=== PATIENT | male | born 1945 | race American Indian/Alaskan Native ===

== ENCOUNTER 2018-09-14 17:02 | Emergency (ER) | payer BC, MEDICARE, OTHER ==
[2018-09-14] MEDS ORDERED: Sodium Chloride 0.9% 10 ML Syringe FLUSH PRN (17:19)
--- NOTE | 2018-09-14 17:26 | EDM.PDOC ---
ED HPI GENERAL MEDICAL PROBLEM - General Stated Complaint: L SIDE NUMBNESS STUMBLING Time Seen by Provider: 09/14/18 17:05 Source of Information: Reports: Patient History Limitations: Reports: No Limitations - History of Present Illness INITIAL COMMENTS - FREE TEXT/NARRATIVE: 73-year-old male with previous history of strokes 2 reports he was sitting at the computer at approximately 4 PM this afternoon and he began to notice numbness in both of his legs and he noticed that his left leg felt unusual and then he tried to get up and he noticed that his left leg was weak and he was stumbling and falling to the left. He also noticed some left arm numbness and feelings of weakness in his left arm as well. The symptoms have been constant and may be even worsening a bit since that time. He does have a mild frontal headache. He rates that pain as a 2/10. No nausea or vomiting. No trouble swallowing. No trouble speaking. No feelings of confusion. His vision appears normal to exam. He reports that his previous strokes have given him right-sided symptoms. He reports recently he has been on a health care kick and has been doing more exercising and running and he actually has stopped all of his medications (including his diabetes medications) approximately 2 years ago. Apparently he was not doing this in conjunction with his doctor (he just did it on his own) and he reports that his recent blood pressures have been very good. He does not regularly check his blood sugars. There are no other associated signs or symptoms. There are no other modifying factors. Onset: Today, Sudden (4 PM) Duration: Constant, Getting Worse (May be getting worse) Location: Reports: Head (Mild frontal headache) Quality: Reports: Dull (And aching) Severity: Mild Improves with: Reports: None Worsens with: Reports: None Context: Reports: Other (While sitting at the computer) Associated Symptoms: Reports: No Other Symptoms Treatments TUBERCULOSIS SPECIALIST: Reports: Other (see below) (Nothing) - Related Data Allergies Allergy/AdvReac Type Severity Reaction Status Date / Time No Known Allergies Allergy Verified 09/14/18 17:58 Home Meds: Home Meds NK [No Known Home Meds] 09/14/18 [History] Past Medical History Cardiovascular History: Reports: CAD, Hypertension Neurological History: Reports: CVA Endocrine/Metabolic History: Reports: Diabetes, Type II - Past Surgical History Cardiovascular Surgical History: Reports: Coronary Artery Stent GI Surgical History: Reports: Cholecystectomy Social & Family History - Tobacco Use Smoking Status *Q: Former Smoker (Nonsmoker since 1985) - Alcohol Use Alcohol Use History: Yes Alcohol Use Comment: No alcohol use since 1985 - Living Situation & Occupation Occupation: Retired (States he just retired last year.) ED ROS GENERAL - Review of Systems Review Of Systems: See Below Constitutional: Reports: No Symptoms HEENT: Reports: No Symptoms Respiratory: Reports: No Symptoms Cardiovascular: Reports: No Symptoms GI/Abdominal: Reports: No Symptoms : Reports: No Symptoms Musculoskeletal: Reports: No Symptoms Skin: Reports: No Symptoms Neurological: Reports: Headache, Numbness (Left-sided), Difficulty Walking ( Falling to left), Weakness (Left-sided) Immunologic: Reports: No Symptoms ED EXAM, NEURO - Physical Exam Exam: See Below Exam Limited By: No Limitations General Appearance: Alert, WD/WN, Mild Distress Eye Exam: Bilateral Eye: EOMI, Normal Inspection, PERRL Ears: Normal External Exam, Hearing Grossly Normal Nose: Normal Inspection, Normal Mucosa, No Blood Throat/Mouth: Normal Inspection, Normal Oropharynx, Normal Voice, No Airway Compromise Head Exam: Atraumatic, Normocephalic Neck: Normal Inspection, Supple, Non-Tender, Full Range of Motion Respiratory/Chest: No Respiratory Distress, Lungs Clear, Normal Breath Sounds, No Accessory Muscle Use, Chest Non-Tender Cardiovascular: Normal Peripheral Pulses, Regular Rate, Rhythm, No JVD, No Murmur GI/Abdominal: Normal Bowel Sounds, Soft, Non-Tender, No Organomegaly, No Mass Neurological: Alert, Normal Mood/Affect, CN II-XII Intact, Oriented x 3, Other ( 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 Strength appears slightly less in the left leg versus the right leg. NIH stroke scale score was 5.) Back Exam: Normal Inspection Extremities: Normal Inspection, Normal Range of Motion, Non-Tender, No Pedal Edema, Normal Capillary Refill Psychiatric: Normal Affect Skin Exam: Warm, Dry, Intact, Normal Color, No Rash EKG INTERPRETATION EKG Date: 09/14/18 Time: 17:45 Rhythm: NSR [place]: LAD-Left [place] Deviation (Slight left axis) P-Wave: Present QRS: Normal ST-T: Other (Nonspecific ST-T changes) QT: Normal Comparison: NA - No Prior EKG EKG Interpretation Comments: Normal sinus rhythm with a rate of 85. There are nonspecific ST-T changes. There is no current of injury present. There is a slight left axis. There is a normal QTC. There is no old EKG for comparison. Course - Orders/Labs/Meds Orders: Active Orders 24 hr Category Date Time Status EKG Documentation Completion [RC] ASDIRECTED Care 09/14/18 17:20 Active Head wo Cont [CT] Stat Exams 09/14/18 17:19 Taken INR,PT,PROTHROMBIN TIME [COAG] Stat Lab 09/14/18 17:55 Received PTT,PARTIAL THROMBOPLSTIN TIME [COAG] Stat Lab 09/14/18 17:55 Received Labetalol [Normodyne] 100 mg Med 09/14/18 18:15 Active Sodium Chloride 0.9% [Normal Saline] 80 ml IV TITRATE Sodium Chloride 0.9% [Saline Flush] Med 09/14/18 17:19 Active 10 ml FLUSH ASDIRECTED PRN Peripheral IV Insertion Adult [OM.PC] Routine Oth 09/14/18 17:19 Ordered EKG 12 Lead [EK] Routine Ther 09/14/18 17:19 Ordered Medication Orders Labetalol HCl 100 mg/ Sodium (Chloride) 100 mls @ 30 mls/hr IV TITRATE LAURA; Protocol Sodium Chloride (Saline Flush) 10 ml FLUSH ASDIRECTED PRN PRN Reason: Keep Vein Open Labs: Laboratory Tests 09/14/18 09/14/18 09/14/18 Range/Units 17:55 17:55 17:55 WBC 6.4 (4.5-12.0) X10-3/uL RBC 4.97 (4.30-5.75) x10(6)uL Hgb 15.6 (13.5-17.8) g/dL Hct 45.4 (30.0-51.3) % MCV 91.2 (80-96) fL MCH 31.3 (27.7-33.6) pg MCHC 34.3 (32.2-35.4) g/dL RDW 12.8 (11.5-15.5) % Plt Count 153 (125-369) X10(3)uL MPV 8.7 (7.4-10.4) fL Neut % (Auto) 72.1 (46-82) % Lymph % (Auto) 23.1 (13-37) % Steele % (Auto) 3.2 L (4-12) % Eos % (Auto) 1 (1.0-5.0) % Baso % (Auto) 1 (0-2) % Neut # (Auto) 4.5 (1.6-8.3) # Lymph # (Auto) 1.5 (0.6-5.0) # Steele # (Auto) 0.2 (0.0-1.3) # Eos # (Auto) 0.1 (0.0-0.8) # Baso # (Auto) 0.1 (0.0-0.2) # Sodium 137 (135-145) mmol/L Potassium 4.4 (3.5-5.3) mmol/L Chloride 99 L (100-110) mmol/L Carbon Dioxide 27 (21-32) mmol/L BUN 25 H (7-18) mg/dL Creatinine 1.1 (0.70-1.30) mg/dL Est Cr Clr Drug Dosing TNP Estimated GFR (MDRD) > 60 (>60) BUN/Creatinine Ratio 22.7 H (9-20) Glucose 304 H (80-116) mg/dL Calcium 9.1 (8.6-10.2) mg/dL Magnesium 1.8 (1.8-2.5) mg/dL Total Bilirubin 0.6 (0.1-1.3) mg/dL AST 15 (5-25) IU/L ALT 28 (12-36) U/L Alkaline Phosphatase 98 (56-112) IU/L Troponin I < 0.017 L (<0.017-0.056) ng/mL Total Protein 7.4 (6.0-8.0) g/dL Albumin 4.3 (3.2-4.6) g/dL Globulin 3.1 g/dL Albumin/Globulin Ratio 1.4 Meds: Medications Generic Name Dose Route Start Last Admin Trade Name Freq PRN Reason Stop Dose Admin Labetalol HCl 100 mg/ Sodium 100 mls @ 30 mls/hr 09/14/18 18:15 Chloride IV TITRATE LAURA Protocol 0.5 MG/MIN Sodium Chloride 10 ml 09/14/18 17:19 Saline Flush FLUSH ASDIRECTED PRN Keep Vein Open Discontinued Medications Generic Name Dose Route Start Last Admin Trade Name Magnolia PRN Reason Stop Dose Admin Alteplase, Recombinant 48.6 mg 09/14/18 18:28 09/14/18 18:36 Activase IV 09/14/18 18:29 48.6 mg .INFUSION ONE Administration Alteplase, Recombinant 5.4 mg 09/14/18 18:28 09/14/18 18:36 Activase IVPUSH 09/14/18 18:29 5.4 mg .BOLUS ONE Administration Labetalol HCl Confirm 09/14/18 18:13 09/14/18 18:24 Normodyne Administered 09/14/18 18:14 10 mg Dose Administration 100 mg .[facility] Radiology Interpretation Free Text/Narrative:: CT scan of head showed no bleeding but did show evidence of a right post central gyrus loss of galvez-white matter differentiation consistent with ischemia , possible subacute versus acute. There was also a new hypodense area in the right occipital lobe consistent with a cortical infarct that was new compared to CT scan on 2012. This was per the [facility] radiologist. - Re-Assessments/Exams Free Text/Narrative Re-Assessment/Exam: 09/14/18 18:00: Results of the patient's CT scan showed no evidence of bleeding but there is some evidence of a new right sided CVA/ischemia. Therefore, I called and discussed the patient's case with Dr. Salazar, stroke neurologist at [facility] in [place], and with the patient having left upper and lower extremity weakness and slight discoordination as well as decreased sensation on the left side numbness/paresthesias (NIH stroke score of 5), he would recommend thrombolytics using TPA and he would also recommend given the patient labetalol in small aliquots to decrease the patient's blood pressure below 185/110. He would then recommend rapid transport of the patient to [facility] in [place] (the fastest means possible) for admission and he would accept the patient in transfer. I discussed this with the patient and the risk and the benefits of TPA administration to the patient and he has given me informed verbal consent to proceed with TPA administration. This was witnessed by IRIS Hale. So the plan will be to reduce the patient's blood pressure below 185/110 and then give TPA via stroke protocol. 09/14/18 18:30: TPA bolus initiated after blood pressure was reduced to the 178/ 93 range using labetalol IV. Air ambulance crew is arriving shortly and the drip will be started and the patient will be transported to [facility] in [place]. The patient has thus far remained neurologically stable. He is awake and alert. He is conversant. Departure - Departure Time of Disposition: 18:45 Disposition: DC/Tfer to Acute Hospital 02 Condition: Critical Clinical Impression: Acute ischemic stroke, Hypertension, poor control - Discharge Information Referrals: PCP,None [Primary Care Provider] - Critical Care Note - Critical Care Note Total Time (mins): 65 Comments: Total critical care time spent with the patient, reviewing CT scan, discussing the patient's case with consultants and arranging transfer was 65 minutes. - My Orders Last 24 Hours: My Active Orders 09/14/18 17:19 Head wo Cont [CT] Stat Sodium Chloride 0.9% [Saline Flush] 10 ml FLUSH ASDIRECTED PRN Peripheral IV Insertion Adult [OM.PC] Routine EKG 12 Lead [EK] Routine 09/14/18 17:20 EKG Documentation Completion [RC] ASDIRECTED 09/14/18 17:55 INR,PT,PROTHROMBIN TIME [COAG] Stat PTT,PARTIAL THROMBOPLSTIN TIME [COAG] Stat 09/14/18 18:15 Labetalol [Normodyne] 100 mg Sodium Chloride 0.9% [Normal Saline] 80 ml IV TITRATE - Assessment/Plan Last 24 Hours: My Active Orders 09/14/18 17:19 Head wo Cont [CT] Stat Sodium Chloride 0.9% [Saline Flush] 10 ml FLUSH ASDIRECTED PRN Peripheral IV Insertion Adult [OM.PC] Routine EKG 12 Lead [EK] Routine 09/14/18 17:20 EKG Documentation Completion [RC] ASDIRECTED 09/14/18 17:55 INR,PT,PROTHROMBIN TIME [COAG] Stat PTT,PARTIAL THROMBOPLSTIN TIME [COAG] Stat 09/14/18 18:15 Labetalol [Normodyne] 100 mg Sodium Chloride 0.9% [Normal Saline] 80 ml IV TITRATE
[2018-09-14] MEDS ORDERED: Labetalol 100 MG/20 ML MDV IVPUSH ONE (18:00)
[2018-09-14] MEDS ORDERED: Labetalol 100 MG/20 ML MDV ONE (18:13)
[2018-09-14] MEDS ORDERED: Labetalol 100 MG in Sodium Chloride 0.9% 80 ML IV SCH (18:15)
== END 2018-09-14 18:55 ==
LOC: FB.ED 17:02
DX: I63.9 Cerebral infarction, unspecified (principal); I10 Essential (primary) hypertension; I25.10 Atherosclerotic heart disease of native coronary artery without angina pectoris; Z95.5 Presence of coronary angioplasty implant and graft; R40.2412 Glasgow coma scale score 13-15, at arrival to emergency department; R29.705 NIHSS score 5; Z87.891 Personal history of nicotine dependence
CPT/HCPCS: 36415; 70450; 80053; 82962; 83735; 84484; 85025; 85610; 85730; 93005; 96365; 96375; 99285; J2997; J3490

== ENCOUNTER 2021-05-05 14:31 | Observation (INO) | payer MEDICAID, MEDICARE ==
[2021-05-05] MEDS ORDERED: Sodium Chloride 0.9% 1,000 ML IV ONE (14:46)
--- NOTE | 2021-05-05 14:54 | EDM.PDOC ---
ED HPI GENERAL MEDICAL PROBLEM - General Chief Complaint: Syncope Stated Complaint: CHEST PAIN Time Seen by Provider: 05/05/21 14:45 Source of Information: Reports: Patient History Limitations: Reports: No Limitations - History of Present Illness INITIAL COMMENTS - FREE TEXT/NARRATIVE: c/o syncope pt with CVA 2y ago, still with left hemiparesis, went to [facility] for his usual PT, he told therapist that he felt "played out" and walked to a chair but collapsed and was "out" for one minute SBP 88 at scene, SBP 99 by EMS and then again SBP 113 by EMS, BP 118/65 with HR 58 on arrival here, PO 94% on RA no n/v, sensorium clear, no pain, no f/c/d pt reports a slip and fall on ice 1 wk ago, slight MARI then, none now, not seen then with him, she was at PT with him, pt had completed his usual 30 min, was seated in a chair, - Related Data Allergies Allergy/AdvReac Type Severity Reaction Status Date / Time No Known Allergies Allergy Verified 09/14/18 17:58 Home Meds: Home Meds Ascorbic Acid [Vitamin C] 250 mg PO DAILY 05/05/21 [History] Aspirin 325 mg PO DAILY 05/05/21 [History] Cholecalciferol (Vitamin D3) [Vitamin D3] 2,000 unit PO DAILY 05/05/21 [History] Cyanocobalamin (Vitamin B-12) [Vitamin B-12] 250 mcg PO DAILY 05/05/21 [History] Docusate Sodium [Colace] 100 mg PO BID 05/05/21 [History] Escitalopram [Lexapro] 20 mg PO DAILY 05/05/21 [History] Gabapentin [Neurontin] 300 mg PO TID 05/05/21 [History] Insulin Glarg,Human.Rec.Analog [Lantus Solostar] 8 unit SUBCUT BEDTIME 05/05/21 [History] Insulin Lispro [Humalog] 4 unit SQ TIDMEALS 05/05/21 [History] Lisinopril/Hydrochlorothiazide [Lisinopril-Hctz 20-25 mg Tab] 1 tab PO DAILY 05/05/21 [History] Melatonin 3 mg PO BEDTIME 05/05/21 [History] Metoprolol Succinate 50 mg PO DAILY 05/05/21 [History] Multivitamin 1 each PO DAILY 05/05/21 [History] Sennosides/Docusate Sodium [Senna-Docusate Sodium Tablet] 2 each PO BEDTIME [History] amLODIPine [Norvasc] 5 mg PO DAILY 05/05/21 [History] atorvaSTATin [Lipitor] 80 mg PO DAILY 05/05/21 [History] traZODone 75 mg PO BEDTIME 05/05/21 [History] Past Medical History Cardiovascular History: Reports: CAD, Hypertension Neurological History: Reports: CVA Endocrine/Metabolic History: Reports: Diabetes, Type II - Past Surgical History Cardiovascular Surgical History: Reports: Coronary Artery Stent GI Surgical History: Reports: Cholecystectomy Social & Family History - Living Situation & Occupation Occupation: Retired (States he just retired last year.) ED ROS GENERAL - Review of Systems Review Of Systems: See Below Constitutional: Reports: No Symptoms HEENT: Reports: No Symptoms Respiratory: Reports: No Symptoms. Denies: Shortness of Breath Cardiovascular: Reports: No Symptoms. Denies: Chest Pain Endocrine: Reports: No Symptoms GI/Abdominal: Reports: No Symptoms. Denies: Abdominal Pain : Reports: No Symptoms Musculoskeletal: Reports: No Symptoms Skin: Reports: No Symptoms Neurological: Reports: Other (lightheaded) Psychiatric: Reports: No Symptoms Hematologic/Lymphatic: Reports: No Symptoms Immunologic: Reports: No Symptoms ED EXAM, GENERAL - Physical Exam Exam: See Below Exam Limited By: No Limitations General Appearance: Alert, WD/WN, No Apparent Distress Ears: Hearing Grossly Normal Nose: Normal Inspection Throat/Mouth: Normal Inspection, Normal Voice, No Airway Compromise Head: Atraumatic, Normocephalic Neck: Normal Inspection, Supple, Non-Tender, Full Range of Motion. No: Lymphadenopathy (R), Lymphadenopathy (L) Respiratory/Chest: No Respiratory Distress, Lungs Clear, Normal Breath Sounds, Chest Non-Tender Cardiovascular: Regular Rate, Rhythm, No Edema, Other (2/6 SCARLETT at LSB) GI/Abdominal: Soft, Non-Tender Back Exam: Normal Inspection, Full Range of Motion. No: CVA Tenderness (R), CVA Tenderness (L) Extremities: Normal Inspection, Normal Range of Motion, Non-Tender Neurological: Alert, Oriented, CN II-XII Intact, Normal Cognition, No Motor/Sensory Deficits Psychiatric: Normal Affect, Normal Mood Skin Exam: Warm, Dry, Intact, Normal Color, No Rash Lymphatic: No Adenopathy Course - Vital Signs Last Recorded V/S: Last Vital Signs Temp 36.6 C 05/05/21 14:31 Pulse 58 L 05/05/21 14:31 Resp 15 05/05/21 14:31 BP 118/65 05/05/21 14:31 Pulse Ox 98 05/05/21 14:31 - Orders/Labs/Meds Orders: Active Orders 24 hr Category Date Time Status Head wo Cont [CT] Stat Exams 05/05/21 14:46 Taken COVID-19/FLU A+B [MOLEC] Stat Lab 05/05/21 16:35 Received UA W/MICROSCOPIC [URIN] Stat Lab 05/05/21 16:55 Received EKG 12 Lead [EK] Routine Ther 05/05/21 14:47 Ordered Labs: Laboratory Tests 05/05/21 05/05/21 05/05/21 Range/Units 15:00 15:00 15:00 WBC 5.6 (3.2-10.1) x10-3/uL RBC 4.33 (3.90-5.90) x10(6)uL Hgb 13.5 (12.9-17.7) g/dL Hct 40.0 (38.3-50.1) % MCV 92.6 (80.8-98.7) fL MCH 31.1 (27.0-33.3) pg MCHC 33.7 (28.7-35.3) g/dL RDW 13.2 (12.4-15.0) % Plt Count 148 (117-477) x10(3)uL MPV 7.8 (6.7-11.0) fL Neut % (Auto) 71.9 H (40.3-71.8) % Lymph % (Auto) 21.0 (15.8-45.3) % Gonzales % (Auto) 5.5 (5.5-15.2) % Eos % (Auto) 1.2 (0.1-6.8) % Baso % (Auto) 0.4 (0.3-3.8) % Neut # (Auto) 4.0 (1.7-6.9) x10-3/uL Lymph # (Auto) 1.2 (0.5-4.5) x10-3/uL [place] # (Auto) 0.3 (0.0-1.2) x10-3/uL Eos # (Auto) 0.1 (0.0-0.6) x10-3/uL Baso # (Auto) 0.0 (0.0-0.3) x10-3/uL PT 10.0 (9.0-11.1) sec INR 0.93 L (1.00-1.24) D-Dimer, Quantitative 0.34 (0.0-0.59) mg/LFEU Sodium 138 (135-145) mmol/L Potassium 5.0 (3.5-5.3) mmol/L Chloride 102 (100-110) mmol/L Carbon Dioxide 29 (21-32) mmol/L BUN 29 H (7-18) mg/dL Creatinine 1.2 (0.70-1.30) mg/dL Est Cr Clr Drug Dosing 46.07 mL/min Estimated GFR (MDRD) 59 L (>60) BUN/Creatinine Ratio 24.2 H (9-20) Glucose 110 D (80-116) mg/dL Calcium 9.0 (8.6-10.2) mg/dL Total Bilirubin 0.5 (0.1-1.3) mg/dL AST 16 (5-25) IU/L ALT 23 D (12-36) U/L Alkaline Phosphatase 64 (56-112) IU/L Troponin I (4.0-60.3) pg/mL C-Reactive Protein (0.5-0.9) mg/dL NT-Pro-B Natriuret Pep (<=450) pg/mL Total Protein 6.9 (6.0-8.0) g/dL Albumin 4.0 (3.2-4.6) g/dL Globulin 2.9 g/dL Albumin/Globulin Ratio 1.4 05/05/21 Range/Units 15:00 WBC (3.2-10.1) x10-3/uL RBC (3.90-5.90) x10(6)uL Hgb (12.9-17.7) g/dL Hct (38.3-50.1) % MCV (80.8-98.7) fL MCH (27.0-33.3) pg MCHC (28.7-35.3) g/dL RDW (12.4-15.0) % Plt Count (117-477) x10(3)uL MPV (6.7-11.0) fL Neut % (Auto) (40.3-71.8) % Lymph % (Auto) (15.8-45.3) % Gonzales % (Auto) (5.5-15.2) % Eos % (Auto) (0.1-6.8) % Baso % (Auto) (0.3-3.8) % Neut # (Auto) (1.7-6.9) x10-3/uL Lymph # (Auto) (0.5-4.5) x10-3/uL Gonzales # (Auto) (0.0-1.2) x10-3/uL Eos # (Auto) (0.0-0.6) x10-3/uL Baso # (Auto) (0.0-0.3) x10-3/uL PT (9.0-11.1) sec INR (1.00-1.24) D-Dimer, Quantitative (0.0-0.59) mg/LFEU Sodium (135-145) mmol/L Potassium (3.5-5.3) mmol/L Chloride (100-110) mmol/L Carbon Dioxide (21-32) mmol/L BUN (7-18) mg/dL Creatinine (0.70-1.30) mg/dL Est Cr Clr Drug Dosing mL/min Estimated GFR (MDRD) (>60) BUN/Creatinine Ratio (9-20) Glucose (80-116) mg/dL Calcium (8.6-10.2) mg/dL Total Bilirubin (0.1-1.3) mg/dL AST (5-25) IU/L ALT (12-36) U/L Alkaline Phosphatase (56-112) IU/L Troponin I 6.9 (4.0-60.3) pg/mL C-Reactive Protein < 0.2 L (0.5-0.9) mg/dL NT-Pro-B Natriuret Pep 686 H (<=450) pg/mL Total Protein (6.0-8.0) g/dL Albumin (3.2-4.6) g/dL Globulin g/dL Albumin/Globulin Ratio Meds: Medications Discontinued Medications Generic Name Dose Route Start Last Admin Trade Name Magnolia PRN Reason Stop Dose Admin Sodium Chloride 1,000 mls @ 999 mls/hr 05/05/21 14:46 05/05/21 15:25 Normal Saline IV 05/05/21 15:46 999 mls/hr .BOLUS ONE Administration - Re-Assessments/Exams Free Text/Narrative Re-Assessment/Exam: 05/05/21 18:55 d/w Dr Dominguez who accepted pt in admission to obs bed and telemetry not orthostatic here has pacemaker altho EKG [id number] at 15:01 with SR, rate 58, no ectopy, no paced beats, normal, no acute/ST/ischemic changes cannot exclude an arrhythmia although unlikely in pt who has pacemaker, not clear why there was difficulty obtaining a pulse at scene, however BP was low at scene no ectopy in ED, HR 60 pt alert and stable and without sxs labs reviewed with pt and , will admit to obs bed for telemetry and repeat labs in AM Departure - Departure Time of Disposition: 19:02 Disposition: Refer to Observation Condition: Good Clinical Impression: Syncope, Hypotension, Elevated brain natriuretic peptide (BNP) level, P acemaker, Coronary artery disease, History of heart artery stent - Discharge Information *PRESCRIPTION DRUG MONITORING PROGRAM REVIEWED*: Not Applicable *COPY OF PRESCRIPTION DRUG MONITORING REPORT IN PATIENT CONNOR: Not Applicable Forms: ED Department Discharge Sepsis Event Note (ED) - Focused Exam Vital Signs: Vital Signs Temp Pulse Resp BP Pulse Ox 05/05/21 14:31 36.6 C 58 L 15 118/65 98 - My Orders Last 24 Hours: My Active Orders 05/05/21 14:46 Head wo Cont [CT] Stat 05/05/21 14:47 EKG 12 Lead [EK] Routine 05/05/21 16:35 COVID-19/FLU A+B [MOLEC] Stat 05/05/21 16:55 UA W/MICROSCOPIC [URIN] Stat - Assessment/Plan Last 24 Hours: My Active Orders 05/05/21 14:46 Head wo Cont [CT] Stat 05/05/21 14:47 EKG 12 Lead [EK] Routine 05/05/21 16:35 COVID-19/FLU A+B [MOLEC] Stat 05/05/21 16:55 UA W/MICROSCOPIC [URIN] Stat
[2021-05-05 17:14] LABS: CORONAVIRUS COVID-19 NAA NEGATIVE (NEGATIVE)
[2021-05-05] MEDS ORDERED: Glucagon,Human Recombinant 1 MG Vial IM PRN (19:04)
[2021-05-05] MEDS ORDERED: 50% Dextrose in Water 50 ML Syringe IVPUSH PRN (19:04)
[2021-05-05] MEDS ORDERED: Acetaminophen 325 MG Tab PO PRN (19:06)
[2021-05-05] MEDS ORDERED: Gabapentin 300 MG Cap PO SCH (21:00)
[2021-05-05] MEDS ORDERED: Gabapentin 300 MG Cap PO ONE (21:00)
[2021-05-05] MEDS ORDERED: Insulin Glargine,Hum.Rec.Anlog 100 UNIT/ML 3 ML Pen SUBCUT SCH (21:00)
[2021-05-05] MEDS ORDERED: traZODone 50 MG Tab PO ONE (21:00)
[2021-05-05] MEDS ORDERED: traZODone 50 MG Tab PO SCH (21:00)
[2021-05-05] MEDS ORDERED: Melatonin 3 MG Tab PO SCH (21:00)
[2021-05-05] MEDS ORDERED: Insulin Glargine,Hum.Rec.Anlog 100 UNIT/ML 3 ML Pen SUBCUT ONE ×2 (21:00→21:16)
[2021-05-05] MEDS ORDERED: Docusate Sodium 100 MG Cap PO SCH (21:00)
--- NOTE | 2021-05-06 00:38 | PCM.SN.2 ---
- Free Text/Narrative Note: 12:33a RN from floor reports pt has had decrease HR 46 and decrease BP 90/50, no ectopy, has been in sinus rhythm pt did not receive metoprolol 50 mg with his evening meds, will hold the AM doses pacemaker does not appear to be working and will need to be interrogated by railroad car inspector in AM pt on several BP meds which may need to have doses adjusted as well pt without sxs ASSESS: 1. sinus bradycardia with apparent pacemaker dysfunction 2. hypotension due to bradycardia PLAN: hold metoprolol interrogate BP in AM adjust BP meds in AM prior to administration possible referral to EPS for new pacemaker
[2021-05-06] MEDS ORDERED: Insulin Lispro 100 Unit/ML 3 ML KwikPen SUBCUT SCH (08:00)
[2021-05-06] MEDS ORDERED: Insulin Glargine,Hum.Rec.Anlog 100 UNIT/ML 3 ML Pen SUBCUT SCH (08:05)
[2021-05-06] MEDS ORDERED: Escitalopram 20 MG Tab PO SCH (09:00)
[2021-05-06] MEDS ORDERED: amLODIPine 5 MG Tab PO SCH (09:00)
[2021-05-06] MEDS ORDERED: Non-Formulary Medication 1 Each (Atorvastatin [Lipitor] 80 MG Tablet) PO SCH (09:00)
[2021-05-06] MEDS ORDERED: Non-Formulary Medication 1 Each (Aspirin [Aspirin] 325 MG Tablet) PO SCH (09:00)
[2021-05-06] MEDS ORDERED: Metoprolol Succinate 50 MG Tab.ER PO SCH (09:00)
--- NOTE | 2021-05-06 09:24 | PCM.HP.2 ---
H&P History of Present Illness - General Date of Service: 05/06/21 Admit Problem/Dx: Admission Diagnosis/Problem Admission Diagnosis/Problem Syncope Source of Information: Patient History Limitations: Reports: No Limitations - History of Present Illness Initial Comments - Free Text/Narative: Bubba is a 76-year-old male who was brought into the ED for a syncopal event. He was undergoing physical therapy, and after 30 minutes felt tired and went to sit down. He was noted and witnessed to lose consciousness for at least a minute. Was brought to the ER, where he was found to have mild bradycardia. Does have a pacemaker in situ. He denies chest pain or shortness of breath. Is at the history of CVA 2 years ago hence the physical therapy. - Related Data Allergies/Adverse Reactions: Allergies Allergy/AdvReac Type Severity Reaction Status Date / Time No Known Allergies Allergy Verified 09/14/18 17:58 Home Medications: Home Meds Ascorbic Acid [Vitamin C] 250 mg PO DAILY 05/05/21 [History] Aspirin 325 mg PO DAILY 05/05/21 [History] Cholecalciferol (Vitamin D3) [Vitamin D3] 2,000 unit PO DAILY 05/05/21 [History] Cyanocobalamin (Vitamin B-12) [Vitamin B-12] 250 mcg PO DAILY 05/05/21 [History] Docusate Sodium [Colace] 100 mg PO BID 05/05/21 [History] Escitalopram [Lexapro] 20 mg PO DAILY 05/05/21 [History] Gabapentin [Neurontin] 300 mg PO TID 05/05/21 [History] Insulin Glarg,Human.Rec.Analog [Lantus Solostar] 8 unit SUBCUT BEDTIME 05/05/21 [History] Insulin Lispro [Humalog] 4 unit SQ TIDMEALS 05/05/21 [History] Lisinopril/Hydrochlorothiazide [Lisinopril-Hctz 20-25 mg Tab] 1 tab PO DAILY 05/05/21 [History] Melatonin 3 mg PO BEDTIME 05/05/21 [History] Metoprolol Succinate 50 mg PO DAILY 05/05/21 [History] Multivitamin 1 each PO DAILY 05/05/21 [History] Sennosides/Docusate Sodium [Senna-Docusate Sodium Tablet] 2 each PO BEDTIME 05/05/21 [History] amLODIPine [Norvasc] 5 mg PO DAILY 05/05/21 [History] atorvaSTATin [Lipitor] 80 mg PO DAILY 05/05/21 [History] traZODone 75 mg PO BEDTIME 05/05/21 [History] Past Medical History HEENT History: Reports: Glaucoma, Impaired Vision, Macular Degeneration Cardiovascular History: Reports: CAD, Hypertension Musculoskeletal History: Reports: Other (See Below) Other Musculoskeletal History: Left sided weakness and impaired gait and mobility due to Hx of CVA Neurological History: Reports: CVA Endocrine/Metabolic History: Reports: Diabetes, Type II - Past Surgical History Cardiovascular Surgical History: Reports: Coronary Artery Stent, Other (See Below) Other Cardiovascular Surgeries/Procedures: Pacemaker GI Surgical History: Reports: Cholecystectomy Social & Family History - Family History Family Medical History: No Pertinent Family History - Tobacco Use Tobacco Use Status *Q: Former Tobacco User Years of Tobacco use: 10 Used Tobacco, but Quit: Yes Month/Year Tobacco Last Used: 1985 Second Hand Smoke Exposure: No - Caffeine Use Caffeine Use: Reports: Coffee Caffeine Use Comment: 4 cups a day - Alcohol Use Date of Last Drink: 07/18/85 - Recreational Drug Use Recreational Drug Use: No - Living Situation & Occupation Occupation: Retired (States he just retired last year.) H&P Review of Systems - Review of Systems: Review Of Systems: Comprehensive ROS is negative, except as noted in HPI. Exam - Exam Exam: See Below - Vital Signs Vital Signs: Last Vital Signs Temp 98.4 F 05/06/21 08:00 Pulse 53 L 05/06/21 08:00 Resp 16 05/06/21 08:00 BP 108/50 L 05/06/21 08:00 Pulse Ox 94 L 05/06/21 08:00 Weight: 59.466 kg - Exam General: Alert, Oriented, 4 HEENT: PERRLA, Hearing Intact, Mucosa Moist & [place], Nares Patent, Normal Nasal Septum, Posterior Pharynx Clear, Conjunctiva Clear, EOMI, EACs Clear, TMs Clear Neck: Supple, Trachea Midline, 2 Lungs: Clear to Auscultation, Normal Respiratory Effort Cardiovascular: Regular Rate, Regular Rhythm GI/Abdominal Exam: Normal Bowel Sounds, Soft, Non-Tender, No Organomegaly, No Distention, No Abnormal Bruit, No Mass, Pelvis Stable (Male) Exam: Deferred Rectal (Males) Exam: Deferred Back Exam: Normal Inspection, Full Range of Motion, NT Extremities: Normal Inspection, Normal Range of Motion, Non-Tender, No Pedal Edema, Normal Capillary Refill Skin: Warm, Dry, Intact Neurological: Cranial Nerves Intact, Hyperreflexia Neuro Extensive - Mental Status: Alert Neuro Extensive - Motor, Sensory, Reflexes: CN II-XII Intact, Normal Gait, Normal Reflexes Psychiatric: Alert, Normal Affect, Normal Mood - Patient Data Lab Results Last 24 hrs: Laboratory Results - last 24 hr 05/05/21 05/05/21 05/05/21 Range/Units 15:00 15:00 15:00 WBC 5.6 (3.2-10.1) x10-3/uL RBC 4.33 (3.90-5.90) x10(6)uL Hgb 13.5 (12.9-17.7) g/dL Hct 40.0 (38.3-50.1) % MCV 92.6 (80.8-98.7) fL MCH 31.1 (27.0-33.3) pg MCHC 33.7 (28.7-35.3) g/dL RDW 13.2 (12.4-15.0) % Plt Count 148 (117-477) x10(3)uL MPV 7.8 (6.7-11.0) fL Neut % (Auto) 71.9 H (40.3-71.8) % Lymph % (Auto) 21.0 (15.8-45.3) % Gage % (Auto) 5.5 (5.5-15.2) % Eos % (Auto) 1.2 (0.1-6.8) % Baso % (Auto) 0.4 (0.3-3.8) % Neut # (Auto) 4.0 (1.7-6.9) x10-3/uL Lymph # (Auto) 1.2 (0.5-4.5) x10-3/uL Gage # (Auto) 0.3 (0.0-1.2) x10-3/uL Eos # (Auto) 0.1 (0.0-0.6) x10-3/uL Baso # (Auto) 0.0 (0.0-0.3) x10-3/uL PT 10.0 (9.0-11.1) sec INR 0.93 L (1.00-1.24) D-Dimer, Quantitative 0.34 (0.0-0.59) mg/LFEU Sodium 138 (135-145) mmol/L Potassium 5.0 (3.5-5.3) mmol/L Chloride 102 (100-110) mmol/L Carbon Dioxide 29 (21-32) mmol/L BUN 29 H (7-18) mg/dL Creatinine 1.2 (0.70-1.30) mg/dL Est Cr Clr Drug Dosing 46.07 mL/min Estimated GFR (MDRD) 59 L (>60) BUN/Creatinine Ratio 24.2 H (9-20) Glucose 110 D (80-116) mg/dL POC Glucose (80-116) mg/dL Calcium 9.0 (8.6-10.2) mg/dL Total Bilirubin 0.5 (0.1-1.3) mg/dL AST 16 (5-25) IU/L ALT 23 D (12-36) U/L Alkaline Phosphatase 64 (56-112) IU/L Troponin I (4.0-60.3) pg/mL C-Reactive Protein (0.5-0.9) mg/dL NT-Pro-B Natriuret Pep (<=450) pg/mL Total Protein 6.9 (6.0-8.0) g/dL Albumin 4.0 (3.2-4.6) g/dL Globulin 2.9 g/dL Albumin/Globulin Ratio 1.4 Urine Color (YELLOW) Urine Appearance (CLEAR) Urine pH (5.0-6.5) Ur Specific Vaugh[place] (1.010-1.025) Urine Protein (NEGATIVE) mg/dL Urine Glucose (UA) (NORMAL) mg/dL Urine Ketones (NEGATIVE) mg/dL Urine Occult Blood (NEGATIVE) Urine Nitrite (NEGATIVE) Urine Bilirubin (NEGATIVE) Urine Urobilinogen (NEGATIVE) mg/dL Ur Leukocyte Esterase (NEGATIVE) Urine RBC (0-5) Urine WBC (0-5) Ur Squamous Epith Cells (NS,R,O) Urine Bacteria (NS) Influenza Type A RNA (NEGATIVE) Influenza Type B RNA (NEGATIVE) SARS-CoV-2 RNA (ALEXANDR) (NEGATIVE) 0105/05/21 05/05/21 Range/Units 15:00 16:35 16:55 WBC (3.2-10.1) x10-3/uL RBC (3.90-5.90) x10(6)uL Hgb (12.9-17.7) g/dL Hct (38.3-50.1) % MCV (80.8-98.7) fL MCH (27.0-33.3) pg MCHC (28.7-35.3) g/dL RDW (12.4-15.0) % Plt Count (117-477) x10(3)uL MPV (6.7-11.0) fL Neut % (Auto) (40.3-71.8) % Lymph % (Auto) (15.8-45.3) % Gage % (Auto) (5.5-15.2) % Eos % (Auto) (0.1-6.8) % Baso % (Auto) (0.3-3.8) % Neut # (Auto) (1.7-6.9) x10-3/uL Lymph # (Auto) (0.5-4.5) x10-3/uL Gage # (Auto) (0.0-1.2) x10-3/uL Eos # (Auto) (0.0-0.6) x10-3/uL Baso # (Auto) (0.0-0.3) x10-3/uL PT (9.0-11.1) sec INR (1.00-1.24) D-Dimer, Quantitative (0.0-0.59) mg/LFEU Sodium (135-145) mmol/L Potassium (3.5-5.3) mmol/L Chloride (100-110) mmol/L Carbon Dioxide (21-32) mmol/L BUN (7-18) mg/dL Creatinine (0.70-1.30) mg/dL Est Cr Clr Drug Dosing mL/min Estimated GFR (MDRD) (>60) BUN/Creatinine Ratio (9-20) Glucose (80-116) mg/dL POC Glucose (80-116) mg/dL Calcium (8.6-10.2) mg/dL Total Bilirubin (0.1-1.3) mg/dL AST (5-25) IU/L ALT (12-36) U/L Alkaline Phosphatase (56-112) IU/L Troponin I 6.9 (4.0-60.3) pg/mL C-Reactive Protein < 0.2 L (0.5-0.9) mg/dL NT-Pro-B Natriuret Pep 686 H (<=450) pg/mL Total Protein (6.0-8.0) g/dL Albumin (3.2-4.6) g/dL Globulin g/dL Albumin/Globulin Ratio Urine Color Yellow (YELLOW) Urine Appearance Clear (CLEAR) Urine pH 7.0 H (5.0-6.5) Ur Specific [place] 1.010 (1.010-1.025) Urine Protein Negative (NEGATIVE) mg/dL Urine Glucose (UA) Normal (NORMAL) mg/dL Urine Ketones Negative (NEGATIVE) mg/dL Urine Occult Blood Negative (NEGATIVE) Urine Nitrite Negative (NEGATIVE) Urine Bilirubin Negative (NEGATIVE) Urine Urobilinogen Normal (NEGATIVE) mg/dL Ur Leukocyte Esterase Negative (NEGATIVE) Urine RBC 0-5 (0-5) Urine WBC 0-5 (0-5) Ur Squamous Epith Cells Rare (NS,R,O) Urine Bacteria Occasional H (NS) Influenza Type A RNA Negative (NEGATIVE) Influenza Type B RNA Negative (NEGATIVE) SARS-CoV-2 RNA (ALEXANDR) Negative (NEGATIVE) 05/05/21 05/06/21 05/06/21 Range/Units 21:52 06:50 06:54 WBC (3.2-10.1) x10-3/uL RBC (3.90-5.90) x10(6)uL Hgb (12.9-17.7) g/dL Hct (38.3-50.1) % MCV (80.8-98.7) fL MCH (27.0-33.3) pg MCHC (28.7-35.3) g/dL RDW (12.4-15.0) % Plt Count (117-477) x10(3)uL MPV (6.7-11.0) fL Neut % (Auto) (40.3-71.8) % Lymph % (Auto) (15.8-45.3) % Gage % (Auto) (5.5-15.2) % Eos % (Auto) (0.1-6.8) % Baso % (Auto) (0.3-3.8) % Neut # (Auto) (1.7-6.9) x10-3/uL Lymph # (Auto) (0.5-4.5) x10-3/uL Gage # (Auto) (0.0-1.2) x10-3/uL Eos # (Auto) (0.0-0.6) x10-3/uL Baso # (Auto) (0.0-0.3) x10-3/uL PT (9.0-11.1) sec INR (1.00-1.24) D-Dimer, Quantitative (0.0-0.59) mg/LFEU Sodium (135-145) mmol/L Potassium (3.5-5.3) mmol/L Chloride (100-110) mmol/L Carbon Dioxide (21-32) mmol/L BUN (7-18) mg/dL Creatinine (0.70-1.30) mg/dL Est Cr Clr Drug Dosing mL/min Estimated GFR (MDRD) (>60) BUN/Creatinine Ratio (9-20) Glucose (80-116) mg/dL POC Glucose 121 H 79 L (80-116) mg/dL Calcium (8.6-10.2) mg/dL Total Bilirubin (0.1-1.3) mg/dL AST (5-25) IU/L ALT (12-36) U/L Alkaline Phosphatase (56-112) IU/L Troponin I 7.0 (4.0-60.3) pg/mL C-Reactive Protein (0.5-0.9) mg/dL NT-Pro-B Natriuret Pep (<=450) pg/mL Total Protein (6.0-8.0) g/dL Albumin (3.2-4.6) g/dL Globulin g/dL Albumin/Globulin Ratio Urine Color (YELLOW) Urine Appearance (CLEAR) Urine pH (5.0-6.5) Ur Specific [place] (1.010-1.025) Urine Protein (NEGATIVE) mg/dL Urine Glucose (UA) (NORMAL) mg/dL Urine Ketones (NEGATIVE) mg/dL Urine Occult Blood (NEGATIVE) Urine Nitrite (NEGATIVE) Urine Bilirubin (NEGATIVE) Urine Urobilinogen (NEGATIVE) mg/dL Ur Leukocyte Esterase (NEGATIVE) Urine RBC (0-5) Urine WBC (0-5) Ur Squamous Epith Cells (NS,R,O) Urine Bacteria (NS) Influenza Type A RNA (NEGATIVE) Influenza Type B RNA (NEGATIVE) SARS-CoV-2 RNA (ALEXANDR) (NEGATIVE) Result Diagrams: 05/05/21 15:00 05/05/21 15:00 Sepsis Event Note - Evaluation Sepsis Screening Result: No Definite Risk - Focused Exam Vital Signs: Vital Signs Temp Temp Pulse Resp BP Pulse Ox 05/06/21 08:00 98.4 F 53 L 16 108/50 L 94 L 05/06/21 04:00 97.8 F 46 L 14 91/49 L 98 05/06/21 00:00 97.7 F 50 L 14 93/42 L 97 - Problem List (1) Syncope SNOMED Code(s): 881436130 ICD Code: R55 - SYNCOPE AND COLLAPSE Status: Acute Current Visit: Yes Qualifiers: Syncope type: vasovagal syncope Qualified Code(s): R55 - Syncope and collapse (2) Bradycardia SNOMED Code(s): 79004772 ICD Code: R00.1 - BRADYCARDIA, UNSPECIFIED Status: Acute Current Visit: Yes (3) Hypotension SNOMED Code(s): 03532619 ICD Code: I95.9 - HYPOTENSION, UNSPECIFIED Status: Acute Current Visit: Yes (4) HTN (hypertension) SNOMED Code(s): 95833559 ICD Code: I10 - ESSENTIAL (PRIMARY) HYPERTENSION Status: Acute Current Visit: Yes Qualifiers: Hypertension type: primary hypertension Qualified Code(s): I10 - Essential (primary) hypertension (5) Coronary artery disease SNOMED Code(s): 23074259 ICD Code: I25.10 - ATHSCL HEART DISEASE OF [place] CORONARY ARTERY W/O ANG PCTRS Status: Chronic Current Visit: Yes (6) Pacemaker SNOMED Code(s): 421169779 ICD Code: Z95.0 - PRESENCE OF CARDIAC PACEMAKER Status: Acute Current Visit: Yes Problem List Initiated/Reviewed/Updated: Yes Orders Last 24hrs: Active Orders 24 hr Category Date Time Status Admission Status [Patient Status] [ADT] Routine ADT 05/05/21 17:42 Active Blood Glucose Check, Bedside [RC] QIDACANDBED Care 05/05/21 19:06 Active Cardiac Monitoring [RC] CONTINUOUS Care 05/05/21 19:07 Active Oxygen Therapy [RC] PRN Care 05/05/21 19:06 Active Up With Assistance [RC] ASDIRECTED Care 05/05/21 19:06 Active VTE/DVT Education [RC] Per Unit Routine Care 05/05/21 19:06 Active Vital Signs [RC] Q4H Care 05/05/21 19:06 Active Heart Healthy Diet [DIET] Diet 05/05/21 Dinner Active Head wo Cont [CT] Stat Exams 05/05/21 14:46 Taken Acetaminophen [TylenoL] Med 05/05/21 19:06 Active 650 mg PO Q4H PRN Aspirin [Aspirin] Med 05/06/21 09:00 Pending 325 mg PO DAILY Dextrose 50% in Water Med 05/05/21 19:04 Active 50 ml IVPUSH ASDIRECTED PRN Docusate Sodium [Colace] Med 05/05/21 21:00 Pending 100 mg PO BID Docusate Sodium/Sennosides [Senna Plus] Med 05/05/21 21:00 Pending DOSE tab PO BEDTIME Escitalopram [Lexapro] Med 05/06/21 09:00 Pending 20 mg PO DAILY Gabapentin [Neurontin] Med 05/05/21 21:00 Pending 300 mg PO TID Glucagon,Human Recombinant [GlucaGen] Med 05/05/21 19:04 Active 1 mg IM ASDIRECTED PRN Insulin Glargine,Hum.Rec.Anlog [Semglee Pen] Med 05/06/21 08:05 Active 8 unit SUBCUT BEDTIME Insulin Lispro [HumaLOG] Med 05/06/21 08:00 Pending 4 unit SUBCUT TIDMEALS Lisinopril/Hydrochlorothiazide [Lisinopril-Hctz 20-25 Med 05/06/21 09:00 Pending mg Tab] 1 tab PO DAILY Melatonin Med 05/05/21 21:00 Pending 3 mg PO BEDTIME Metoprolol Succinate [Toprol XL] Med 05/06/21 09:00 Pending 50 mg PO DAILY amLODIPine [Norvasc] Med 05/06/21 09:00 Pending 5 mg PO DAILY atorvaSTATin [Lipitor] Med 05/06/21 09:00 Pending 80 mg PO DAILY traZODone Med 05/05/21 21:00 Pending 75 mg PO BEDTIME Resuscitation Status Routine Resus Stat 05/05/21 19:06 Ordered EKG 12 Lead [EK] Routine Ther 05/05/21 14:47 Ordered EKG 12 Lead [EK] Stat Ther 05/05/21 19:06 Stop Req EKG 12 Lead [EK] Stat Ther 05/06/21 06:00 Ordered Medication Orders Acetaminophen (Acetaminophen 325 Mg Tab) 650 mg PO Q4H PRN PRN Reason: Pain (Mild 1-3)/fever Amlodipine Besylate (Amlodipine 5 Mg Tab) 5 mg PO DAILY [facility] Dextrose/Water (50% Dextrose In Water 50 Ml Syringe) 50 ml IVPUSH ASDIRECTED PRN PRN Reason: Hypoglycemia Docusate Sodium (Docusate Sodium 100 Mg Cap) 100 mg PO BID [facility] Escitalopram Oxalate (Escitalopram 20 Mg Tab) 20 mg PO DAILY [facility] Gabapentin (Gabapentin 300 Mg Cap) 300 mg PO TID [facility] Glucagon (Glucagon,Human Recombinant 1 Mg Vial) 1 mg IM ASDIRECTED PRN PRN Reason: Hypoglycemia Insulin Glargine (Insulin Glargine,Hum.Rec.Anlog 100 Unit/Ml 3 Ml Pen) 8 unit SUBCUT BEDTIME [facility] Insulin Human Lispro (Insulin Lispro 100 Unit/Ml 3 Ml Kwikpen) 4 unit SUBCUT TIDMEALS [facility] Melatonin (Melatonin 3 Mg Tab) 3 mg PO BEDTIME [facility] Metoprolol Succinate (Metoprolol Succinate 50 Mg Tab.Er) 50 mg PO DAILY [facility] Non-Formulary Medication (Aspirin [Aspirin]) 325 mg PO DAILY [facility] Non-Formulary Medication (Atorvastatin [Lipitor]) 80 mg PO DAILY [facility] Non-Formulary Medication (Lisinopril/Hydrochlorothiazide [Lisinopril-Hctz 20-25 Mg Tab]) 1 tab PO DAILY [facility] Senna/Docusate Sodium (Docusate Sodium/Sennosides 50-8.6 Mg Tab) tab PO BEDTIME [facility] Trazodone HCl (Trazodone 50 Mg Tab) 75 mg PO BEDTIME [facility] Assessment/Plan Comment:: I suspect vasovagal syncope, versus bradycardia. I will stop his beta tim, discharge him home, and IV follow-up with his inspector cold working next 1-2 days.
== END 2021-05-06 10:40 | disposition home or self-care (01) ==
LOC: FB.ED 14:31 → FB.MS 18:51
PROVIDERS: ADMIT Family Medicine; ATTEND Family Medicine
DX: R55 Syncope and collapse (principal); R00.1 Bradycardia, unspecified; I10 Essential (primary) hypertension; I25.10 Atherosclerotic heart disease of native coronary artery without angina pectoris; E11.9 Type 2 diabetes mellitus without complications; Z90.49 Acquired absence of other specified parts of digestive tract; Z79.899 Other long term (current) drug therapy; Z79.82 Long term (current) use of aspirin; Z86.73 Personal history of transient ischemic attack (TIA), and cerebral infarction without residual deficits; Z79.84 Long term (current) use of oral hypoglycemic drugs; Z95.0 Presence of cardiac pacemaker; Z87.891 Personal history of nicotine dependence; Z20.822 Contact with and (suspected) exposure to COVID-19
CPT/HCPCS: 0240U; 36415; 70450; 80053; 81001; 82947; 83880; 84484; 85025; 85379; 85610; 86140; 93005; 99285-25; A9270-GY; G0378; J7030

== ENCOUNTER 2024-12-23 08:46 | Emergency (ER) | payer OTHER, MEDICARE | END 2024-12-23 10:02 | disposition home or self-care (01) | LOC: FB.ED 08:46 | DX: S32.029A Unspecified fracture of second lumbar vertebra, initial encounter for closed fracture (principal); I25.10 Atherosclerotic heart disease of native coronary artery without angina pectoris; I10 Essential (primary) hypertension; E11.9 Type 2 diabetes mellitus without complications; Z95.5 Presence of coronary angioplasty implant and graft; Z86.73 Personal history of transient ischemic attack (TIA), and cerebral infarction without residual deficits; Z79.82 Long term (current) use of aspirin; Z79.899 Other long term (current) drug therapy; Z79.4 Long term (current) use of insulin; Z91.013 Allergy to seafood; V29.408A Other motorcycle driver injured in collision with unspecified motor vehicles in traffic accident, initial encounter; Y92.410 Unspecified street and highway as the place of occurrence of the external cause | CPT/HCPCS: 72131; 99283 ==